=== PATIENT | female | born 1950 | race African-American/Black ===

== ENCOUNTER 2018-09-03 14:52 | Emergency (ER) | payer MEDICARE, BC ==
[~2018-09-03] VITALS: Ht 177.8 cm; Wt 81.0 kg
[~2018-09-03 14:52] MED LIST: AMLO5TAB88 PO; HYDR25TA PO
[2018-09-03] MEDS ORDERED: LETR2.5T6 PO (15:09)
[2018-09-03] MEDS ORDERED: ASPI-1159 PO (15:10)
[2018-09-03] MEDS ORDERED: ONDANSETRON 4MG ODT PO ONE (19:30)
[2018-09-03] MEDS ORDERED: TRAMADOL 50MG TABLET PO ONE (19:30)
[2018-09-03 22:59] VITALS: BP 138/81
== END 2018-09-03 23:01 | disposition home or self-care (01) ==
LOC: ER 15:27
DX: S52.591A Other fractures of lower end of right radius, initial encounter for closed fracture (principal); S40.021A Contusion of right upper arm, initial encounter; I10 Essential (primary) hypertension; I49.9 Cardiac arrhythmia, unspecified; Z88.6 Allergy status to analgesic agent; Z85.9 Personal history of malignant neoplasm, unspecified; Z91.048 Other nonmedicinal substance allergy status; Z90.710 Acquired absence of both cervix and uterus; Z98.890 Other specified postprocedural states; Z96.659 Presence of unspecified artificial knee joint; Z79.82 Long term (current) use of aspirin; W01.0XXA Fall on same level from slipping, tripping and stumbling without subsequent striking against object, initial encounter; Y93.89 Activity, other specified; Y92.018 Other place in single-family (private) house as the place of occurrence of the external cause
CPT/HCPCS: 29125; 73080; 73110; 73130; 93005; 99283; Q0162

== ENCOUNTER 2022-07-30 11:19 | Emergency (ER) | payer BC, MEDICARE ==
[~2022-07-30] VITALS: Ht 165.1 cm; Wt 79.0 kg
[~2022-07-30 11:19] MED LIST changes: +ASPI-1497 PO; +LETR2.5T7 PO
[2022-07-30 11:28] VITALS: BP 138/87
[2022-07-30] MEDS ORDERED: TETANUS, DIPHTHERIA, PERTUSSIS VAC/PF 0.5ML (>10YR OLD) IM ONE (13:00)
[2022-07-30] MEDS ORDERED: BACITRACIN ZINC OINT UDPKT TOP ONE (13:00)
[2022-07-30] MEDS ORDERED: LIDOCAINE HCL/PF 1% 10 MG/ML 5ML VIAL INFIL ONE (13:00)
== END 2022-07-30 15:16 | disposition home or self-care (01) ==
LOC: ER 11:28
DX: S01.81XA Laceration without foreign body of other part of head, initial encounter (principal); S09.8XXA Other specified injuries of head, initial encounter; I10 Essential (primary) hypertension; W00.0XXA Fall on same level due to ice and snow, initial encounter; Y93.89 Activity, other specified; Y92.89 Other specified places as the place of occurrence of the external cause; Z85.3 Personal history of malignant neoplasm of breast; Z88.6 Allergy status to analgesic agent; Z79.82 Long term (current) use of aspirin; Z91.041 Radiographic dye allergy status; Z91.048 Other nonmedicinal substance allergy status; Z90.710 Acquired absence of both cervix and uterus; Z96.659 Presence of unspecified artificial knee joint
CPT/HCPCS: 70450; 72125; 90471; 90715; 99285; J3490

== ENCOUNTER → 2023-10-31 | Outpatient (CLI) | payer BC | END | disposition home or self-care (01) | LOC: RAD 10:39 | PROVIDERS: ATTEND Internal Medicine Critical Care Medicine | DX: J45.909 Unspecified asthma, uncomplicated (principal); R06.02 Shortness of breath | CPT/HCPCS: 71046 ==